=== PATIENT | female | born 1955 | race Two or more races ===

== ENCOUNTER 2017-11-02 11:42 | Outpatient (CLI) | payer OTHER ==
[~2017-11-02 11:42] MED LIST: XARELTO 10MG PO
== END 2017-11-02 12:56 | disposition home or self-care (01) ==
LOC: RAD 501 11:42
DX: M25.561 Pain in right knee (principal); Z96.651 Presence of right artificial knee joint

== ENCOUNTER 2019-12-26 14:11 | Outpatient (CLI) | payer OTHER | END 2019-12-26 14:17 | disposition home or self-care (01) | LOC: RAD 14:11 | DX: M17.12 Unilateral primary osteoarthritis, left knee (principal); T84.092D Other mechanical complication of internal right knee prosthesis, subsequent encounter ==

== ENCOUNTER 2020-01-29 09:18 | Outpatient (CLI) | payer OTHER | END 2020-01-29 09:48 | disposition home or self-care (01) | LOC: NUCLEAR 09:18 | PROVIDERS: ATTEND Orthopaedic Surgery | DX: M17.11 Unilateral primary osteoarthritis, right knee (principal); M25.561 Pain in right knee | CPT/HCPCS: 78315; 78802; A9503; A9556 ==

== ENCOUNTER 2020-02-08 09:42 | Inpatient (IN) | payer OTHER ==
[~2020-02-08] VITALS: Ht 152.4 cm; Wt 108.9 kg
[2020-02-08] MEDS ORDERED: COZAAR25 MG PO (13:59)
[2020-02-08] MEDS ORDERED: GLUMETZA500 MG PO (13:59)
[2020-02-08] MEDS ORDERED: HYDROCHLOROTHIA25 MG PO (13:59)
[2020-02-08] MEDS ORDERED: TOPROL XL100 M1 PO (13:59)
[2020-02-08] MEDS ORDERED: ASPIRIN EC81 MG PO (14:00)
[2020-02-08] MEDS ORDERED: PROZAC10 MG PO (14:00)
[2020-02-08] MEDS ORDERED: SIMVASTATIN5 MG PO (14:00)
[2020-02-18] MEDS ORDERED: CHLORHEXIDINE118 ML TP (08:15)
[2020-02-18] MEDS ORDERED: DICLOFENAC SOD100 GM (08:15)
[2020-02-18] MEDS ORDERED: CELECOXIB200 MG (08:16)
[2020-02-18] MEDS ORDERED: LOSARTAN POTAS100 MG (08:16)
[2020-02-18] MEDS ORDERED: XARELTO10 M1 (08:16)
[2020-02-18] MEDS ORDERED: FLUOXETINE HCL20 MG (08:16)
[2020-02-18] MEDS ORDERED: PRAVASTATIN SOD20 MG (08:16)
== END 2020-02-21 11:20 | disposition home or self-care (01) | DRG 468 ==
LOC: SURH 02-18 07:28 → O/R 02-18 07:28 → SURH 02-18 08:15
PROVIDERS: ADMIT Orthopaedic Surgery; ATTEND Orthopaedic Surgery
PROC: 0SWC0JZ Revision of Synthetic Substitute in Right Knee Joint, Open Approach (ICD-10-PCS; principal; 2020-02-18 09:45)
DX: T84.032A Mechanical loosening of internal right knee prosthetic joint, initial encounter (principal); E66.01 Morbid (severe) obesity due to excess calories; I10 Essential (primary) hypertension

== ENCOUNTER → 2020-02-08 10:22 | Outpatient (CLI) | payer OTHER ==
[~2020-02-08 10:22] MED LIST changes: +ASPIRIN EC81 MG PO; +CELECOXIB200 MG; +CHLORHEXIDINE118 ML TP; +COZAAR25 MG PO; +DICLOFENAC SOD100 GM; +FLUOXETINE HCL20 MG; +GLUMETZA500 MG PO; +HYDROCHLOROTHIA25 MG PO; +LOSARTAN POTAS100 MG; +PRAVASTATIN SOD20 MG; +PROZAC10 MG PO; +SIMVASTATIN5 MG PO; +TOPROL XL100 M1 PO; +XARELTO10 M1
== END | disposition home or self-care (01) ==
LOC: RAD 10:22 → LAB 10:22
PROVIDERS: ATTEND Orthopaedic Surgery
DX: D64.89 Other specified anemias (principal); E88.89 Other specified metabolic disorders; D68.8 Other specified coagulation defects; N39.0 Urinary tract infection, site not specified; Z22.322 Carrier or suspected carrier of Methicillin resistant Staphylococcus aureus; E13.69 Other specified diabetes mellitus with other specified complication; Z76.89 Persons encountering health services in other specified circumstances; I49.8 Other specified cardiac arrhythmias; I10 Essential (primary) hypertension

== ENCOUNTER 2022-06-18 09:49 | Outpatient (CLI) | payer OTHER ==
[~2022-06-18] VITALS: Ht 154.9 cm; Wt 62.1 kg
== END 2022-06-18 09:50 | disposition home or self-care (01) ==
LOC: LAB 09:49
PROVIDERS: ATTEND Orthopaedic Surgery
DX: M17.12 Unilateral primary osteoarthritis, left knee (principal); D64.9 Anemia, unspecified; Z76.89 Persons encountering health services in other specified circumstances; D68.8 Other specified coagulation defects; N39.0 Urinary tract infection, site not specified; I10 Essential (primary) hypertension

== ENCOUNTER 2022-06-21 13:47 | Outpatient (CLI) | payer OTHER | END 2022-06-21 13:48 | disposition home or self-care (01) | LOC: NUCLEAR 13:47 | PROVIDERS: ATTEND Orthopaedic Surgery | DX: M81.0 Age-related osteoporosis without current pathological fracture (principal); Z88.0 Allergy status to penicillin; Z88.8 Allergy status to other drugs, medicaments and biological substances; Z91.018 Allergy to other foods ==

== ENCOUNTER 2025-03-20 14:57 | Outpatient (CLI) | payer OTHER ==
[~2025-03-20 14:57] MED LIST changes: +GABAPENTIN100 M2; +METOPROLOL TAR100 MG
== END 2025-03-20 14:59 | disposition home or self-care (01) ==
LOC: RAD 14:57
PROVIDERS: ATTEND Orthopaedic Surgery
DX: M25.561 Pain in right knee (principal); M25.562 Pain in left knee